=== PATIENT | female | born 1985 | race African-American/Black ===

== ENCOUNTER 2018-08-16 14:15 | Emergency (ER) | payer MEDICAID ==
[~2018-08-16] VITALS: Ht 160 cm; Wt 60.0 kg
[2018-08-16] MEDS ORDERED: SODIUM CHLORIDE 0.9% 1,000 ML IV ONE (14:52)
[2018-08-16] MEDS ORDERED: LORAZEPAM 2MG/ML CPJ IV ONE (15:00)
[2018-08-16] MEDS ORDERED: OLANZAPINE 10 MG/VIAL IM ONE (15:00)
[2018-08-16 16:32] LABS: BASOPHILS % 1.2 % (0.0-2.0); EOSINOPHILS % 0.4 % (0.0-5.0); HEMATOCRIT. 32.3 % (36.0-48.0); LYMPHOCYTES % 23.6 % (20.0-50.0); MEAN CORPUSCULAR HEMOGLOBIN 27.1 pg (28.0-32.0); MEAN CORPUSCULAR VOLUME 79.7 fL (81.0-99.0); MEAN PLATELET VOLUME 8.3 fl (7.4-10.4); MONOCYTES % 11.5 % (2.0-8.0); NEUTROPHILS % 63.3 % (40.0-76.0); PLATELET 293 x1000/uL (130-400); RED BLOOD CELL COUNT 4.05 mill/uL (4.2-5.4); RED CELL DISTRIBUTION WIDTH 15.7 % (11.6-14.6)
[2018-08-16 16:35] LABS: CHLORIDE 107 mEq/L (98-107)
[2018-08-16 16:39] LABS: ETHANOL BLOOD < 10 mg/dL
[2018-08-16 16:51] LABS: HCG SCREEN NEGATIVE
[2018-08-16 18:10] LABS: *COCAINE SCREEN URINE PRESUMTIVE POSITIVE (NEGATIVE); METHADONE URINE SCREEN NEGATIVE (NEGATIVE); OPIATES URINE SCREEN NEGATIVE (NEGATIVE)
[2018-08-16 18:11] LABS: *BARBITURATES SCREEN URINE NEGATIVE (NEGATIVE); *BENZODIAZEPINES SCREEN URINE NEGATIVE (NEGATIVE); CANNABINOID URINE SCREEN NEGATIVE (NEGATIVE); PHENCYCLIDINE URINE SCREEN NEGATIVE (NEGATIVE)
[2018-08-16 18:12] LABS: *AMPHETAMINES SCREEN URINE PRESUMTIVE POSITIVE (NEGATIVE)
[2018-08-17 14:17] VITALS: BP 101/55
== END 2018-08-17 14:32 | disposition home or self-care (01) ==
LOC: ER 14:15
DX: G92 Toxic encephalopathy (principal); E86.0 Dehydration; F14.10 Cocaine abuse, uncomplicated; F15.10 Other stimulant abuse, uncomplicated; D64.9 Anemia, unspecified
CPT/HCPCS: 36415; 80048; 80305; 80307; 80329; 81025; 84703; 85025; 96361; 96372; 96374; 99283; G0482; J2060; J3490; J7030